=== PATIENT | female | born 1980 | race Caucasian/White ===

== ENCOUNTER 2017-01-23 05:30 | Emergency (ER) | payer OTHER ==
[~2017-01-23] VITALS: Ht 160 cm; Wt 54.9 kg
[2017-01-23 05:39] VITALS: BP 119/87
--- NOTE | 2017-01-23 05:42 | NUR ---
PT TAKEN TO BED 8
--- NOTE | 2017-01-23 05:42 | NUR ---
PATIENT PRESENTS TO ED WITH C/O RASH TO BILAT ARM AND HANDS X 2 DAYS. PT DENIES ANY SOB, OR DIFFICULTY BREATHING . PT STATES SHE HAS HX OF REOCCURRING RASHES AND HX OF ASTHMA . DENIES N/V/D; SKIN IS PINK/WARM/DRY; AAOX4 WITH EVEN AND STEADY GAIT; LUNGS CLEAR BL; HR EVEN AND REGULAR; PT DENIES ANY FEVER, CP, SOB, OR COUGH AT THIS TIME; PATIENT STATES PAIN OF 0/10 AT THIS TIME; VSS; PATIENT POSITIONED FOR COMFORT; HOB ELEVATED; BEDRAILS UP X2; BED DOWN. ER MD MADE AWARE OF PT STATUS.
--- NOTE | 2017-01-23 05:46 | NUR ---
Dr. Betancourt evaluating patient at bedside.
[2017-01-23 05:54] VITALS: BP 117/82
--- NOTE | 2017-01-23 05:54 | NUR ---
Patient discharged with v/s stable. Written and verbal after care instructions given and explained. Patient alert, oriented and verbalized understanding of instructions. Ambulatory with steady gait. All questions addressed prior to discharge. ID band removed. Patient advised to follow up with PMD. Rx of TRIAMCINOLONE 0.1 CRM AND ZYRTEC 10MG given. Patient educated on indication of medication including possible reaction and side effects. Opportunity to ask questions provided and answered.
== END 2017-01-23 05:54 | disposition home or self-care (01) ==
LOC: MED 05:30
DX: L25.8 Unspecified contact dermatitis due to other agents (principal); J45.909 Unspecified asthma, uncomplicated
CPT/HCPCS: 99283

== ENCOUNTER 2017-04-03 05:10 | Emergency (ER) | payer OTHER ==
[~2017-04-03] VITALS: Ht 160 cm; Wt 54.4 kg
[2017-04-03 05:20] VITALS: BP 138/87
--- NOTE | 2017-04-03 05:25 | NUR ---
PT TAKEN TO BED 8
--- NOTE | 2017-04-03 05:27 | NUR ---
36 Y/O F W/C/O ECZEMA MED REFILLS. DENIES ANY PAIN. NO S/S OF DSITRESS NOTED AT THE MOMENT.ER MADE AWARE.
--- NOTE | 2017-04-03 05:29 | NUR ---
Dr. Caballero evaluating patient at bedside.
[2017-04-03 05:36] VITALS: BP 138/87
--- NOTE | 2017-04-03 05:36 | NUR ---
Patient discharged with v/s stable. Written and verbal after care instructions given and explained. Patient alert, oriented and verbalized understanding of instructions. Ambulatory with steady gait. All questions addressed prior to discharge. ID band removed. Patient advised to follow up with PMD OR RETURN TO ER IF CONDITION WORSENS. Rx of CETIRIZINE HYDROCHLORIDE, AND TRIAMCINOLONE given. Patient educated on indication of medication including possible reaction and side effects. Opportunity to ask questions provided and answered.
== END 2017-04-03 05:36 | disposition home or self-care (01) ==
LOC: MED 05:10
CPT/HCPCS: 99283

== ENCOUNTER 2022-02-02 21:10 | Emergency (ER) | payer OTHER ==
[~2022-02-02] VITALS: Ht 160 cm; Wt 59.0 kg
[2022-02-02 21:18] VITALS: BP 121/82
[2022-02-02] MEDS ORDERED: DIPH25TA53 PO (22:29)
[2022-02-02] MEDS ORDERED: ALBU-118 INH (22:29)
[2022-02-02] MEDS ORDERED: PRED20TA5 PO (22:29)
[2022-02-02] MEDS ORDERED: FAMO-92 PO (22:29)
[2022-02-02] MEDS: methylPREDNISolone SS 125 MG/2 ML VIAL IM ONE (22:31)
[2022-02-02] MEDS: FAMOTIDINE 20 MG TAB PO ONE (22:32)
[2022-02-02] MEDS: ALBUTEROL SULFATE/IPRATROPIU 3 ML SOL IH ONE (22:33)
[2022-02-02 22:56] VITALS: BP 121/82
== END 2022-02-02 22:54 | disposition home or self-care (01) ==
LOC: MED 21:10
DX: L25.9 Unspecified contact dermatitis, unspecified cause (principal); J44.1 Chronic obstructive pulmonary disease with (acute) exacerbation; Z79.899 Other long term (current) drug therapy
CPT/HCPCS: 94640; 96372; 99283; J2930; Q0163

== ENCOUNTER 2023-01-30 05:05 | Emergency (ER) | payer OTHER ==
[~2023-01-30] VITALS: Ht 160 cm; Wt 64.4 kg
[~2023-01-30 05:05] MED LIST: ALBU-118 INH; DIPH25TA53 PO; FAMO-92 PO; PRED20TA5 PO
[2023-01-30 05:11] VITALS: BP 114/90
--- NOTE | 2023-01-30 05:16 | NUR ---
Patient taken to bed 4.
--- NOTE | 2023-01-30 05:16 | NUR ---
C/O SOB x today. Patient reported, had cough for a week, Patient tested COVID-19 (Home kit) -negative. Patient ran out IH medication. PMHx: Asthma
[2023-01-30] MEDS ORDERED: ALBUTEROL SULFATE/IPRATROPIU 3 ML SOL IH ONE (05:45)
[2023-01-30] MEDS ORDERED: predniSONE 20 MG TAB PO ONE (05:45)
--- NOTE | 2023-01-30 05:54 | NUR ---
X-Ray at bedside.
--- NOTE | 2023-01-30 05:57 | NUR ---
Respiratory Therapist at bedside for respiratory intervention.
--- NOTE | 2023-01-30 06:00 | NUR ---
RT at the bedside
--- NOTE | 2023-01-30 06:10 | NUR ---
Dr. Ramirez examining patient.
[2023-01-30] MEDS ORDERED: PRED20TA5 PO (06:23)
[2023-01-30] MEDS ORDERED: ALBU0.0912 INH (06:23)
[2023-01-30 06:32] VITALS: BP 114/90
--- NOTE | 2023-01-30 06:33 | NUR ---
Patient discharged with v/s stable. Written and verbal after care instructions given and explained. Patient alert, oriented and verbalized understanding of instructions. Ambulatory with steady gait. All questions addressed prior to discharge. ID band removed. Patient advised to follow up with PMD. Rx of ambulatory and prednisone given. Patient educated on indication of medication including possible reaction and side effects. Opportunity to ask questions provided and answered.pt left with her belonings.
== END 2023-01-30 06:33 | disposition home or self-care (01) ==
LOC: MED 05:05
DX: J45.901 Unspecified asthma with (acute) exacerbation (principal); F17.200 Nicotine dependence, unspecified, uncomplicated; F12.90 Cannabis use, unspecified, uncomplicated; Z79.899 Other long term (current) drug therapy
CPT/HCPCS: 71045; 94640; 99283; J7512; Q0092

== ENCOUNTER 2023-06-12 23:55 | Emergency (ER) | payer OTHER ==
[~2023-06-12] VITALS: Ht 160 cm; Wt 67.1 kg
[~2023-06-12 23:55] MED LIST changes: +ALBU0.0912 INH
[2023-06-12 23:58] VITALS: BP 138/82; PULSE 114; RESP 20; TEMP 97.4; O2SAT 98
[2023-06-13 00:18] VITALS: O2SAT 98
[2023-06-13] MEDS ORDERED: FAMOTIDINE 20 MG TAB PO ONE (00:20)
[2023-06-13] MEDS ORDERED: predniSONE 20 MG TAB PO ONE (00:20)
[2023-06-13] MEDS ORDERED: PRED20TA5 PO (00:49)
== END 2023-06-13 01:07 | disposition home or self-care (01) ==
LOC: MED 23:55
DX: L50.9 Urticaria, unspecified (principal); J45.909 Unspecified asthma, uncomplicated; Z79.899 Other long term (current) drug therapy
CPT/HCPCS: 99284; J7512; Q0163

== ENCOUNTER 2023-12-07 05:37 | Emergency (ER) | payer OTHER ==
[~2023-12-07] VITALS: Ht 160 cm; Wt 68.0 kg
[2023-12-07 05:38] VITALS: BP 113/83; PULSE 110; RESP 18; TEMP 97.8; O2SAT 6
== END 2023-12-07 06:10 | disposition left against medical advice (07) ==
LOC: MED 05:37
DX: R21 Rash and other nonspecific skin eruption (principal); Z53.21 Procedure and treatment not carried out due to patient leaving prior to being seen by health care provider
CPT/HCPCS: 99281